=== PATIENT | male | born 1990 | race African-American/Black ===

== ENCOUNTER 2018-06-16 12:26 | Inpatient (IN) | payer OTHER ==
[2018-06-16] MEDS ORDERED: AMMONIA AROMATIC INHALANT (FLOOR STOCK) As Ordered (12:39)
[2018-06-16 13:06] LABS: HEMATOCRIT 39.5 % (42.0-52.0); HEMOGLOBIN 13.7 g/dl (13.5-17.5); MEAN CORPUSCULAR HEMOGLOBIN 30.2 pg (27.0-33.0); MEAN CORPUSCULAR HGB CONC 34.7 g/dl (32.0-36.5); MEAN CORPUSCULAR VOLUME 87.2 fl (80.0-96.0); PLATELET COUNT, AUTOMATED 289 10^3/uL (150-450); RED BLOOD COUNT 4.53 10^6/uL (4.30-6.10); RED CELL DISTRIBUTION WIDTH 12.3 % (11.5-14.5); WHITE BLOOD COUNT 6.9 10^3/uL (4.0-10.0)
[2018-06-16 13:18] LABS: ANION GAP 6 MEQ/L (8-16); BLOOD UREA NITROGEN 16 MG/DL (7-18); CALCIUM LEVEL 8.7 MG/DL (8.5-10.1); CARBON DIOXIDE LEVEL 27 MEQ/L (21-32); CHLORIDE LEVEL 105 MEQ/L (98-107); GLOMERULAR FILTRATION RATE > 60.0 (>60); GLUCOSE, FASTING 141 MG/DL (70-100); POTASSIUM SERUM 3.9 MEQ/L (3.5-5.1); SODIUM LEVEL 138 MEQ/L (136-145)
[2018-06-16 13:40] LABS: AMPHETAMINES LEVEL URINE NEGATIVE (NEGATIVE); BARBITURATES URINE NEGATIVE (NEGATIVE); BENZODIAZEPINES URINE NEGATIVE (NEGATIVE); CANNABINOIDS URINE NEGATIVE (NEGATIVE); COCAINE METABOLITE URINE NEGATIVE (NEGATIVE); METHADONE URINE NEGATIVE (NEGATIVE); OPIATES URINE NEGATIVE (NEGATIVE); PHENCYCLIDINE URINE NEGATIVE (NEGATIVE)
[2018-06-16 13:56] LABS: AMMONIA 13 uMOL/L (<32)
[2018-06-16 14:02] LABS: ALBUMIN 4.3 GM/DL (3.2-5.2); ALBUMIN/GLOBULIN RATIO 1.19 (1.00-1.93); ALKALINE PHOSPHATASE 86 U/L (45-117); ALT/SGPT 28 U/L (12-78); AST/SGOT 27 U/L (7-37); BILIRUBIN,DIRECT 0.2 MG/DL (0.0-0.2); BILIRUBIN,TOTAL 0.5 MG/DL (0.2-1.0); TOTAL PROTEIN 7.9 GM/DL (6.4-8.2)
[2018-06-16 18:13] LABS: ETHYL ALCOHOL (ETHANOL) < 0.003 % (0.000-0.010)
[2018-06-16 18:13] LABS: ACETAMINOPHEN LEVEL < 2.0 UG/ML (10.0-30.0); SALICYLATE LEVEL < 1.7 MG/DL (5.0-30.0); THYROID STIMULATING HORMONE 0.406 uIU/ML (0.358-3.740)
[2018-06-16] MEDS: LORazepam 2 MG/ML VIAL (J2060) IM (20:27)
[2018-06-16] MEDS: diphenhydrAMINE 25 MG CAP PO (23:40)
[2018-06-16] MEDS: HALOPERIDOL 10 MG TAB PO (23:40)
[2018-06-17] MEDS ORDERED: OLANZapine ORAL DISINTEGRATING TAB 5MG PO
[2018-06-17] MEDS ORDERED: MOM 30ML SUSPENSION UDC PO
[2018-06-17] MEDS: PALIPERIDONE 3 MG ER TAB (INVEGA) PO (09:26)
[2018-06-18] MEDS: PALIPERIDONE 3 MG ER TAB (INVEGA) PO ×2 (08:30→22:01)
[2018-06-19] MEDS: PALIPERIDONE 3 MG ER TAB (INVEGA) PO ×2 (09:09→20:01)
[2018-06-20] MEDS: PALIPERIDONE 3 MG ER TAB (INVEGA) PO ×2 (08:26→20:16)
[2018-06-21] MEDS: PALIPERIDONE 3 MG ER TAB (INVEGA) PO ×2 (09:06→20:26)
[2018-06-22] MEDS: MAALOX 30 ML SUSP *UDC PO (06:53)
[2018-06-22 09:46] LABS: HEMATOCRIT 43.3 % (42.0-52.0); MEAN CORPUSCULAR HEMOGLOBIN 30.3 pg (27.0-33.0); MEAN CORPUSCULAR HGB CONC 34.6 g/dl (32.0-36.5); MEAN CORPUSCULAR VOLUME 87.5 fl (80.0-96.0); PLATELET COUNT, AUTOMATED 257 10^3/uL (150-450); RED BLOOD COUNT 4.95 10^6/uL (4.30-6.10); RED CELL DISTRIBUTION WIDTH 12.3 % (11.5-14.5); WHITE BLOOD COUNT 5.6 10^3/uL (4.0-10.0)
[2018-06-22] MEDS: PALIPERIDONE 3 MG ER TAB (INVEGA) PO (09:49)
[2018-06-22] MEDS: ONDANSETRON 4 MG ORAL DISINTEGRATING TAB (Q0162 PER 1MG) PO (09:50)
[2018-06-22 10:00] LABS: ALBUMIN 3.8 GM/DL (3.2-5.2); ALBUMIN/GLOBULIN RATIO 1.23 (1.00-1.93); ALKALINE PHOSPHATASE 82 U/L (45-117); ALT/SGPT 24 U/L (12-78); ANION GAP 5 MEQ/L (8-16); AST/SGOT 18 U/L (7-37); BILIRUBIN,TOTAL 0.4 MG/DL (0.2-1.0); BLOOD UREA NITROGEN 13 MG/DL (7-18); CALCIUM LEVEL 8.5 MG/DL (8.5-10.1); CARBON DIOXIDE LEVEL 27 MEQ/L (21-32); CHLORIDE LEVEL 104 MEQ/L (98-107); GLOMERULAR FILTRATION RATE > 60.0 (>60); GLUCOSE, FASTING 111 MG/DL (70-100); LIPASE 86 U/L (73-393); POTASSIUM SERUM 4.3 MEQ/L (3.5-5.1); SODIUM LEVEL 136 MEQ/L (136-145); TOTAL PROTEIN 6.9 GM/DL (6.4-8.2)
[2018-06-22 11:58] LABS: LACTIC ACID SEPSIS PROTOCOL 1.4 MMOL/L (0.4-2.0)
[2018-06-22 12:06] LABS: KETONE, URINE AUTO RFX NEGATIVE (NEGATIVE); LEUKOCYTE ESTERASE UR AUTO RFX NEGATIVE (NEGATIVE); MUCUS, URINE RFX SMALL (NEGATIVE); NITRITE, URINE AUTO RFX NEGATIVE (NEGATIVE); RBC, URINE AUTO RFX 0 /HPF (0-3); SPECIFIC GRAVITY UR AUTO RFX 1.024 (1.002-1.035); SQUAM EPITHELIAL CELL UR AURFX 0 /HPF (0-6); WBC, URINE AUTO RFX 1 /HPF (0-3)
[2018-06-22] MEDS: SERTRALINE HCL 50 MG TAB PO (12:18)
[2018-06-22] MEDS: ACETAMINOPHEN TAB 650MG DOSE (2X325MG) PO ×2 (14:39→22:18)
[2018-06-23 07:31] LABS: HEMATOCRIT 42.8 % (42.0-52.0); HEMOGLOBIN 14.9 g/dl (13.5-17.5); MEAN CORPUSCULAR HEMOGLOBIN 30.2 pg (27.0-33.0); MEAN CORPUSCULAR HGB CONC 34.8 g/dl (32.0-36.5); MEAN CORPUSCULAR VOLUME 86.8 fl (80.0-96.0); PLATELET COUNT, AUTOMATED 219 10^3/uL (150-450); RED BLOOD COUNT 4.93 10^6/uL (4.30-6.10); RED CELL DISTRIBUTION WIDTH 12.4 % (11.5-14.5); WHITE BLOOD COUNT 3.9 10^3/uL (4.0-10.0)
[2018-06-23 07:56] LABS: ALBUMIN 3.2 GM/DL (3.2-5.2); ALBUMIN/GLOBULIN RATIO 0.91 (1.00-1.93); ALKALINE PHOSPHATASE 72 U/L (45-117); ALT/SGPT 20 U/L (12-78); ANION GAP 5 MEQ/L (8-16); AST/SGOT 18 U/L (7-37); BILIRUBIN,TOTAL 0.5 MG/DL (0.2-1.0); BLOOD UREA NITROGEN 9 MG/DL (7-18); C REACTIVE PROTEIN QUANTITATIV 4.58 MG/DL (0.00-0.30); CALCIUM LEVEL 7.9 MG/DL (8.5-10.1); CARBON DIOXIDE LEVEL 28 MEQ/L (21-32); CHLORIDE LEVEL 105 MEQ/L (98-107); CREATININE FOR GFR 1.08 MG/DL (0.70-1.30); GLOMERULAR FILTRATION RATE > 60.0 (>60); GLUCOSE, FASTING 94 MG/DL (70-100); POTASSIUM SERUM 3.9 MEQ/L (3.5-5.1); SODIUM LEVEL 138 MEQ/L (136-145); TOTAL PROTEIN 6.7 GM/DL (6.4-8.2)
[2018-06-23] MEDS: PALIPERIDONE 3 MG ER TAB (INVEGA) PO (09:01)
[2018-06-23] MEDS: SERTRALINE HCL 50 MG TAB PO (09:01)
[2018-06-23] MEDS: MAALOX 30 ML SUSP *UDC PO ×2 (19:26→23:33)
[2018-06-23] MEDS ORDERED: LOPERAMIDE 2 MG CAP PO ×2 (21:45)
[2018-06-24] MEDS: PALIPERIDONE 3 MG ER TAB (INVEGA) PO (08:51)
[2018-06-24] MEDS: SERTRALINE HCL 50 MG TAB PO (08:51)
[2018-06-25] MEDS: PALIPERIDONE 3 MG ER TAB (INVEGA) PO (08:14)
[2018-06-25] MEDS: SERTRALINE HCL 50 MG TAB PO (08:14)
[2018-06-26] MEDS: PALIPERIDONE 3 MG ER TAB (INVEGA) PO (08:10)
[2018-06-26] MEDS: SERTRALINE HCL 50 MG TAB PO (08:10)
[2018-06-27] MEDS: PALIPERIDONE 3 MG ER TAB (INVEGA) PO (08:14)
[2018-06-27] MEDS: SERTRALINE HCL 50 MG TAB PO (08:14)
[2018-06-28] MEDS: PALIPERIDONE 3 MG ER TAB (INVEGA) PO (08:15)
[2018-06-28] MEDS: SERTRALINE HCL 50 MG TAB PO (08:15)
== END 2018-06-28 10:10 | disposition home or self-care (01) | DRG 885 ==
LOC: M ED INP 23:49 → M PSY 06-23 12:23 → M ED 12:26
DX: F22 Delusional disorders (principal); A08.0 Rotaviral enteritis; F41.1 Generalized anxiety disorder; F43.20 Adjustment disorder, unspecified; F29 Unspecified psychosis not due to a substance or known physiological condition